=== PATIENT | female | born 1985 | race Caucasian/White ===

== ENCOUNTER 2017-02-25 20:07 | Emergency (ER) | payer MEDICAID ==
[~2017-02-25] VITALS: Ht 167.6 cm; Wt 67.1 kg
[2017-02-25 20:24] VITALS: BP 142/82
--- NOTE | 2017-02-25 21:00 | NUR ---
31Y F BIB SELF C/O lower abd pain, started at 1300hours.no trauma nor injury. PT STATED PAIN FEELS LIKE CONTRACTIONS. AB IS SOFT AND PALPABLE, . PT DENIES N/V/D
--- NOTE | 2017-02-25 21:03 | NUR ---
Mary serra in [facility] - 02/25/17 at 2219 by MEDANJALI TO ER BED 4
[2017-02-25] MEDS ORDERED: KETOROLAC 60 MG/2 ML VIAL IM ONE (21:15)
--- NOTE | 2017-02-25 22:00 | NUR ---
Patient being evaluated by physician DR MONTANO at bedside.
--- NOTE | 2017-02-25 22:15 | NUR ---
Patient discharged with v/s stable. Written and verbal after care instructions given and explained. Patient alert, oriented and verbalized understanding of instructions. Ambulatory with steady gait. All questions addressed prior to discharge. ID band removed. Patient advised to follow up with PMD. Rx of MACROBID AND MOTRIN 800MG given. Patient educated on indication of medication including possible reaction and side effects. Opportunity to ask questions provided and answered.
[2017-02-25 22:16] VITALS: BP 136/80
== END 2017-02-25 22:16 | disposition home or self-care (01) ==
LOC: MED 20:07
DX: N39.0 Urinary tract infection, site not specified (principal); R03.0 Elevated blood-pressure reading, without diagnosis of hypertension
CPT/HCPCS: 72100; 81002; 81025; 96372; 99284; J1885

== ENCOUNTER 2019-02-09 19:43 | Emergency (ER) | payer MEDICAID, OTHER ==
[~2019-02-09] VITALS: Ht 167.6 cm; Wt 65.8 kg
[2019-02-09 19:55] VITALS: BP 141/88
--- NOTE | 2019-02-09 19:55 | NUR ---
PATIENT AMBULATED TO ER CHAIR E.
--- NOTE | 2019-02-09 20:05 | NUR ---
PT IS A 33 Y/O FEMALE WHO PRESENTS TO THE ED C/O L FOOT PAIN. PER PT, PICTURE FRAME WAS DROPPED ON THE L FOOT, PT REPORTS FEELING GLASS INSIDE. NOTED MINOR LACERATION, CONTROLLED BLEEDING. CMS INTACT, NO OBVIOUS TRAUMA/DEFORMITY. PT REPORTS 5/10 ACHING L FOOT PAIN THAT DOES NOT RADIATE. PT DENIES CP, SOB, N/V/D. PT AWAKE AND ALERT, RR EVEN/UNLABORED. PT REPOSITIONED FOR COMFORT, BED IN LOWEST POSITION. ER PROVIDER NOTIFIED. WILL CONTINUE TO MONITOR. DENIES PMH NKA
--- NOTE | 2019-02-09 20:32 | NUR ---
PATIENT BROUGHT BACK IN WHEELCHAIR FROM XRAY
[2019-02-09] MEDS ORDERED: LIDOCAINE MPF 1% 5mL VIAL INJ ONE (21:45)
--- NOTE | 2019-02-09 21:45 | NUR ---
PATIENT MOVED TO ER BED 8.
--- NOTE | 2019-02-09 21:50 | NUR ---
JACQUELYN WELCH PERFORMING SUTURE CARE AT BEDSIDE.
[2019-02-09] MEDS ORDERED: LIDOCAINE MPF 1% 5mL VIAL ONE (21:54)
[2019-02-09] MEDS ORDERED: BACITRACIN OINT 500 UNITS/GM PKT TP ONE (22:18)
--- NOTE | 2019-02-09 22:18 | NUR ---
NON-ADHERENT GAUZE WITH BACITRACIN WAS PLACED ON PATIENT WITH VERNON WRAP
[2019-02-09 22:24] VITALS: BP 142/88
--- NOTE | 2019-02-09 22:24 | NUR ---
Patient discharged with v/s stable. Written and verbal after care instructions given and explained. Patient alert, oriented and verbalized understanding of instructions. Ambulatory with steady gait. All questions addressed prior to discharge. ID band removed. Patient advised to follow up with PMD. Rx of BACITRACIN 500UNIT/G given. Patient educated on indication of medication including possible reaction and side effects. Opportunity to ask questions provided and answered.
== END 2019-02-09 22:24 | disposition home or self-care (01) ==
LOC: MED 19:43
DX: S91.312A Laceration without foreign body, left foot, initial encounter (principal); W20.1XXA Struck by object due to collapse of building, initial encounter; Y93.89 Activity, other specified; Y92.89 Other specified places as the place of occurrence of the external cause; Y99.8 Other external cause status
CPT/HCPCS: 73630; 90471; 90715; 99283; J2001